=== PATIENT | female | born 1930 | race Native Hawaiian/Other Pacific Islander ===

== ENCOUNTER 2018-01-18 10:32 | Outpatient (CLI) | payer OTHER | END 2018-01-18 19:19 | disposition home or self-care (01) | LOC: CT 10:32 | DX: R42 Dizziness and giddiness (principal) ==

== ENCOUNTER 2019-07-06 14:49 | Outpatient (CLI) | payer OTHER | END 2019-07-06 15:26 | disposition short-term general hospital (02) | LOC: AMB 14:49 | DX: M25.552 Pain in left hip (principal); M79.652 Pain in left thigh; W10.8XXA Fall (on) (from) other stairs and steps, initial encounter; Y93.89 Activity, other specified; Y92.018 Other place in single-family (private) house as the place of occurrence of the external cause | CPT/HCPCS: A0425; A0427 ==